=== PATIENT | male | born 1970 | race African-American/Black ===

== ENCOUNTER 2018-02-11 09:43 | Inpatient (IN) | payer BC ==
[2018-02-11 10:18] LABS: Arterial Blood Carboxyhemoglob 0.7 % (0-1.5); Blood Gas Oxyhemoglobin 90.9 % (94-97); Blood O2 Saturation 92.4 % (92-98.5)
[2018-02-11 10:22] LABS: Absolute Lymphocytes (CBC) 0.7 K/uL (0.7-4.9); Absolute Monocytes 0.3 K/uL (0.1-1.3); Absolute Neutrophil 4.4 K/uL (1.8-8.0); Basophils % 0.4 % (0-1.3); Hematocrit 50.5 % (39.6-49.0); Lymphocytes % 13.1 % (15.3-44.8); Monocytes % 5.8 % (3.3-12.3); RBC Red Blood Cell Count 6.16 M/uL (4.33-5.43)
[2018-02-11] MEDS ORDERED: NA CHLORIDE 0.9% 3,000 ML ONE (10:30)
[2018-02-11 10:31] LABS: Protime INR 1.25
--- NOTE | 2018-02-11 10:58 | RAD REPORT ---
EXAM DESCRIPTION: RAD - Chest Single View - 02/11/2018 10:42 am CLINICAL HISTORY: DYSPNEA Chest pain. COMPARISON: No comparisons FINDINGS: Portable technique limits examination quality. Mild to moderate bilateral pulmonary opacities are noted likely representing pulmonary edema or pneum onia. The heart is normal in size. No displaced fractures. IMPRESSION: Bilateral pulmonary opacities are present, likely representing pulmonary edema or pneumo joleen.
[2018-02-11 10:59] LABS: Albumin 3.3 g/dL (3.4-5.0); Bilirubin Direct 0.1 mg/dL (0-0.2); Bilirubin Total 0.4 mg/dL (0.2-1.0); Potassium 3.7 mmol/L (3.5-5.1); Protein, Total 8.3 g/dL (6.4-8.2); Troponin (Emerg Dept Use Only) 0.03 ng/mL (0.0-0.045)
[2018-02-11] MEDS ORDERED: Levofloxacin 750mg IV 750 MG/150 ML BAG IV ONE (11:05)
[2018-02-11] MEDS ORDERED: ACETAMINOPHEN 500 MG TAB ONE (11:05)
--- NOTE | 2018-02-11 11:36 | ER ---
Nurse's Notes [facility] Name: Addison Trujillo Age: 47 yrs Sex: Male : 1970 Arrival Date: 02/11/2018 Time: 09:46 Bed 8 Private MD: Diagnosis: Pneumonia due to other specified bacteria;Rhabdomyolysis;Dehydration;Acute respiratory failure with hypoxia Presentation: 02/11 09:54 Presenting complaint: Patient states: Cough, cold, congestion, flu like symptoms for the past 3-4 days. diarrhea and epigastric pain, congestion. Transition of care: patient was not received from another setting of care. Onset of symptoms was February 07, 2018. Risk Assessment: Do you want to hurt yourself or someone else? Patient reports no desire to harm self or others. Initial Sepsis Screen: Does the patient meet any 2 criteria? RR > 20 per min. HR > 90 bpm. Yes Does the patient have a suspected source of infection? Yes: Productive cough/pneumonia If YES to both, name of provider notified: Espinoza Toussaint MD Care prior to arrival: None. 09:54 Method Of Arrival: Wheelchair 09:54 Acuity: FREDERIC 2 Triage Assessment: 09:56 General: Appears distressed, uncomfortable, Behavior is anxious, restless. Pain: Complains of pain in epigastric area, right upper quadrant and left upper quadrant Pain currently is 8 out of 10 on a pain scale. Neuro: No deficits noted. Cardiovascular: Heart tones S1 S2. Cardiovascular: Heart tones. Respiratory: Airway is patent Trachea midline Respiratory effort is labored, gasping, Respiratory pattern is tachypnea Breath sounds are coarse. Historical: - Allergies: 09:56 PENICILLINS; - Home Meds: 09:56 pro air [Active]; ch - PMHx: 09:56 None; ch - PSHx: 09:56 None; - Immunization history:: Adult Immunizations up to date, Flu vaccine is not up to date. - Social history:: Smoking status: Patient uses tobacco products, Patient uses alcohol. - Ebola Screening: : Patient negative for fever greater than or equal to 101.5 degrees Fahrenheit, and additional compatible Ebola Virus Disease symptoms Patient denies exposure to infectious person Patient denies travel to an Ebola-affected area in the 21 days before illness onset No symptoms or risks identified at this time. Screenin:16 Abuse screen: Denies threats or abuse. Denies injuries from another. Nutritional ch screening: No deficits noted. Tuberculosis screening: No symptoms or risk factors identified. Fall Risk None identified. Assessment: 10:16 General: Appears in no apparent distress. comfortable, Behavior is calm, cooperative, ch appropriate for age. Pain: Denies pain. Neuro: Level of Consciousness is awake, alert, obeys commands, Oriented to person, place, time, situation. Cardiovascular:. Respiratory: Airway is patent Respiratory effort is labored, gasping, with nasal flaring, with retractions, Breath sounds are coarse bilaterally. GI: Abdomen is non-distended, obese. : No signs and/or symptoms were reported regarding the genitourinary system. Derm: Skin is normal. 11:48 Reassessment: Patient appears in no apparent distress at this time. Patient and/or ch family updated on plan of care and expected duration. Pain level reassessed. pt placed on bi pap, states he can breath better on it. pt states he feels sightly better, but not much. pt tries to urinate for the second time, unsuccessfully. 12:15 Reassessment: Patient appears in no apparent distress at this time. Patient and/or ch family updated on plan of care and expected duration. Pain level reassessed. Patient states feeling better. Patient states symptoms have improved. Vital Signs: 09:58 BP 130 / 92; Pulse 135; Resp 35; Pulse Ox 90% on R/A; Weight 108.86 kg; Height 5 ft. 10 ch in. (177.80 cm); Pain 8/10; 10:16 BP 134 / 91; Pulse 129; Resp 36; Temp 99.8; Pulse Ox 96% on 4 lpm NC; Pain 8/10; ch 10:39 Temp 103.3(O); ch 11:30 BP 145 / 108; Pulse 135; Resp 38; Temp 101.5(O); Pulse Ox 94% on 4 lpm NC; Pain 6/10; ch 11:51 BP 140 / 88; Pulse 119; Resp 31; Pulse Ox 98% on BiPAP; Pain 4/10; ch 12:34 BP 136 / 90; Pulse 118; Resp 30; Temp 101.0; Pulse Ox 99% on BiPAP; Pain 0/10; ch 09:58 Body Mass Index 34.44 (108.86 kg, 177.80 cm) ED Course: 09:46 Patient arrived in ED. mr 09:53 Carie Morales, NIRAJ is Primary Nurse. ch 09:54 Darien Herron PA is PHCP. jr8 09:54 Espinoza Toussaint MD is Attending Physician. jr8 09:55 Triage completed. ch 09:58 Arm band placed on left wrist. Patient placed in an exam room, on a stretcher, on ch oxygen, on monitoring and evaluation advisor, on pulse oximetry. 10:12 EKG done, by radiologic technician. reviewed by Darien CHANDLER. tc 10:16 Appears restless. ch 10:16 Patient has correct armband on for positive identification. Placed in gown. Bed in low ch position. Call light in reach. Side rails up X2. Adult w/ patient. classroom monitor on. Pulse ox on. NIBP on. 10:16 No provider procedures requiring assistance completed. Inserted saline lock: 22 gauge ch in right antecubital area, using aseptic technique. Blood collected. Initiated by Cayden. 10:42 X-ray completed. Portable x-ray completed in exam room. Patient tolerated procedure ka well. 10:42 Chest Single View XRAY In Process Unspecified. EDMS 11:34 Colleen Riddle MD is Hospitalizing Provider. jr8 12:15 Patient admitted, IV remains in place. ch 12:34 No apparent distress. Resting quietly. ch 12:34 Warm blanket given. ch 12:34 Inserted saline lock: 18 gauge in left antecubital area, using aseptic technique. ch 12:52 Echocardiogram with Doppler done by instructional technology coordinator. tc Administered Medications: 10:35 Drug: NS 0.9% (30 ml/kg) 3000 ml {Note: Fluids given 1 L at a time, reassess after each ch Liter. i.} Route: IV; Rate: calculated rate; Infused Over: 2 hrs; Site: right antecubital; 12:34 Follow up: IV Status: Completed infusion; IV Intake: 3000ml 11:00 Drug: Tylenol 1000 mg Route: PO; 11:48 Follow up: Response: No adverse reaction; Temperature is decreased ch 11:19 Drug: LevaQUIN 750 mg Volume: 150 ml; Route: IVPB; Infused Over: 90 mins; Site: left antecubital; 12:33 Follow up: IV Status: Infusion continued upon admission 12:32 Drug: Xopenex 1.25 mg Route: Inhalation; Intake: 12:34 IV: 3000ml; Total: 3000ml. Outcome: 11:34 Decision to Hospitalize by Provider. jr8 12:37 Admitted to ICU accompanied by nurse, accompanied by michael, via stretcher, room ICU 7, Report called to Stephanie 13:02 Patient left the ED. jb1 13:30 Condition: stable 13:43 Patient left the ED. Signatures: Dispatcher [employer] EDMS PetersCayden jb1 Carie Morales, RN RN Yosef, Demetrice mr Gopal, Darien, PA PA jr8 Karmen Lafleur, greeting card editor EKG Kerline Drake Corrections: (The following items were deleted from the chart) 10:42 09:54 Initial Sepsis Screen: Does the patient meet any 2 criteria? No. Patient's initial sepsis screen is negative. Does the patient have a suspected source of infection? No. Patient's initial sepsis screen is negative.
--- NOTE | 2018-02-11 11:36 | EDPHYS ---
Physician Documentation [facility] Name: Addison Trujillo Age: 47 yrs Sex: Male : 1970 Arrival Date: 02/11/2018 Time: 09:46 Bed 8 Private MD: ED Physician Espinoza Toussaint HPI: 02/11 10:57 This 47 yrs old Black Male presents to ER via Wheelchair with complaints of Shortness jr8 of breath. 10:57 The patient has shortness of breath at rest. Onset: The symptoms/episode began/occurred jr8 gradually, 1 week(s) ago, and became worse and became persistent. Duration: The symptoms are continuous. The patient's shortness of breath is aggravated by talking, walking. Associated signs and symptoms: Pertinent positives: productive cough, fever. Severity of symptoms: At their worst the symptoms were moderate in the emergency department the symptoms are unchanged. The patient has not experienced similar symptoms in the past. The patient has been recently seen by a physician:. Had been having cough, sinus congestion, n/v/d for past week. Now developing shortness of breath. Patient in mild distress upon arrival . Historical: - Allergies: 09:56 PENICILLINS; ch - Home Meds: 09:56 pro air [Active]; ch - PMHx: 09:56 None; ch - PSHx: 09:56 None; ch - Immunization history:: Adult Immunizations up to date, Flu vaccine is not up to date. - Social history:: Smoking status: Patient uses tobacco products, Patient uses alcohol. - Ebola Screening: : Patient negative for fever greater than or equal to 101.5 degrees Fahrenheit, and additional compatible Ebola Virus Disease symptoms Patient denies exposure to infectious person Patient denies travel to an Ebola-affected area in the 21 days before illness onset No symptoms or risks identified at this time. ROS: 10:57 Eyes: Negative for injury, pain, redness, and discharge, Neck: Negative for injury, jr8 pain, and swelling, Cardiovascular: Negative for chest pain, palpitations, and edema, Back: Negative for injury and pain, MS/Extremity: Negative for injury and deformity, Skin: Negative for injury, rash, and discoloration, Neuro: Negative for headache, weakness, numbness, tingling, and seizure. 10:57 Constitutional: Positive for body aches, chills, fever. 10:57 ENT: Positive for rhinorrhea, sinus congestion. 10:57 Respiratory: Positive for cough, dyspnea on exertion, shortness of breath. 10:57 Abdomen/GI: Positive for nausea, vomiting, and diarrhea, Negative for abdominal pain. Exam: 10:57 Head/Face: Normocephalic, atraumatic. Eyes: Pupils equal round and reactive to light, jr8 extra-ocular motions intact. Lids and lashes normal. Conjunctiva and sclera are non-icteric and not injected. Cornea within normal limits. Periorbital areas with no swelling, redness, or edema. ENT: Nares patent. No nasal discharge, no septal abnormalities noted. Tympanic membranes are normal and external auditory canals are clear. Oropharynx with no redness, swelling, or masses, exudates, or evidence of obstruction, uvula midline. Mucous membranes moist. Neck: Trachea midline, no thyromegaly or masses palpated, and no cervical lymphadenopathy. Supple, full range of motion without nuchal rigidity, or vertebral point tenderness. No Meningismus. Abdomen/GI: Soft, non-tender, with normal bowel sounds. No distension or tympany. No guarding or rebound. No evidence of tenderness throughout. Back: No spinal tenderness. No costovertebral tenderness. Full range of motion. Skin: Warm, dry with normal turgor. Normal color with no rashes, no lesions, and no evidence of cellulitis. MS/ Extremity: Pulses equal, no cyanosis. Neurovascular intact. Full, normal range of motion. Neuro: Awake and alert, GCS 15, oriented to person, place, time, and situation. Cranial nerves II-XII grossly intact. Motor strength 5/5 in all extremities. Sensory grossly intact. Cerebellar exam normal. Normal gait. 10:57 Constitutional: The patient appears alert, awake, in obvious distress, obviously ill. 10:57 Cardiovascular: Rate: tachycardic, Rhythm: regular, Pulses: Pulses are 2+ in right radial artery and left radial artery. Heart sounds: normal, Edema: is not appreciated. 10:57 Respiratory: mild respiratory distress is noted, Respirations: tachypnea, that is mild, Breath sounds: rales, that are mild, are located in both bases. Vital Signs: 09:58 BP 130 / 92; Pulse 135; Resp 35; Pulse Ox 90% on R/A; Weight 108.86 kg; Height 5 ft. 10 ch in. (177.80 cm); Pain 8/10; 10:16 BP 134 / 91; Pulse 129; Resp 36; Temp 99.8; Pulse Ox 96% on 4 lpm NC; Pain 8/10; ch 10:39 Temp 103.3(O); ch 11:30 BP 145 / 108; Pulse 135; Resp 38; Temp 101.5(O); Pulse Ox 94% on 4 lpm NC; Pain 6/10; ch 11:51 BP 140 / 88; Pulse 119; Resp 31; Pulse Ox 98% on BiPAP; Pain 4/10; ch 12:34 BP 136 / 90; Pulse 118; Resp 30; Temp 101.0; Pulse Ox 99% on BiPAP; Pain 0/10; ch 09:58 Body Mass Index 34.44 (108.86 kg, 177.80 cm) ch MDM: 09:54 Patient medically screened. jr8 11:33 Data reviewed: vital signs, nurses notes, lab test result(s), EKG, radiologic studies, jr8 plain films. Data interpreted: Pulse oximetry: on 3L(s) per nasal canula, is 91 %. Interpretation: hypoxia. Counseling: I had a detailed discussion with the patient and/or guardian regarding: the historical points, exam findings, and any diagnostic results supporting the discharge/admit diagnosis, lab results, radiology results, the need for further work-up and treatment in the hospital. Physician consultation: Colleen Riddle MD was called at 11:34, was contacted at 11:34, regarding admission, to the ICU, consult, patient's condition, and will see patient. 02/11 10:00 Order name: ABG; Complete Time: 10:39 02/11 10:00 Order name: Basic Metabolic Panel; Complete Time: 11:16 02/11 10:00 Order name: Blood Culture Adult (2) 02/11 10:00 Order name: CBC with Diff; Complete Time: 10:39 02/11 10:00 Order name: CPK; Complete Time: 11:16 02/11 10:00 Order name: Lactate; Complete Time: 10:56 02/11 10:00 Order name: LFT's; Complete Time: 11:16 02/11 10:00 Order name: Procalcitonin; Complete Time: 11:00 8 02/11 10:00 Order name: Protime (+inr); Complete Time: 10:56 8 02/11 10:00 Order name: Troponin (emerg Dept Use Only); Complete Time: 11:16 8 02/11 10:00 Order name: Chest Single View XRAY; Complete Time: 11:00 8 02/11 10:03 Order name: Flu; Complete Time: 10:39 8 02/11 13:21 Order name: Urine Dipstick--Ancillary (enter results) ag 02/11 13:41 Order name: Urine Dipstick-Ancillary; Complete Time: 17:36 EDMS 02/11 10:00 Order name: Cardiac monitoring; Complete Time: 10:15 8 02/11 10:00 Order name: EKG - Nurse/Tech; Complete Time: 10:15 8 02/11 10:00 Order name: IV Saline Lock - Large Bore; Complete Time: 12:34 8 02/11 10:00 Order name: Labs collected and sent; Complete Time: 10:15 8 02/11 10:00 Order name: O2 Per Protocol; Complete Time: 10:15 8 02/11 10:00 Order name: O2 Sat Monitoring; Complete Time: 10:15 8 02/11 10:53 Order name: EKG Electrocardiogram EDCT 02/11 11:43 Order name: CONS Physician Consult EDCT 02/11 11:48 Order name: Diet Ada 2000 Jesse; Complete Time: 11:49 ch 02/11 12:12 Order name: CT; Complete Time: 12:13 EDMS Administered Medications: 10:35 Drug: NS 0.9% (30 ml/kg) 3000 ml {Note: Fluids given 1 L at a time, reassess after each ch Liter. i.} Route: IV; Rate: calculated rate; Infused Over: 2 hrs; Site: right antecubital; 12:34 Follow up: IV Status: Completed infusion; IV Intake: 3000ml ch 11:00 Drug: Tylenol 1000 mg Route: PO; ch 11:48 Follow up: Response: No adverse reaction; Temperature is decreased ch 11:19 Drug: LevaQUIN 750 mg Volume: 150 ml; Route: IVPB; Infused Over: 90 mins; Site: left antecubital; 12:33 Follow up: IV Status: Infusion continued upon admission 12:32 Drug: Xopenex 1.25 mg Route: Inhalation; Disposition: 11:35 Critical Care:. jr8 Disposition: 02/11/18 11:34 Hospitalization ordered by Colleen Riddle for Inpatient Admission. Preliminary diagnosis are Pneumonia due to other specified bacteria, Rhabdomyolysis, Dehydration, Acute respiratory failure with hypoxia. - Bed requested for Intensive Care Unit. - Status is Inpatient Admission. - Condition is Fair. - Problem is new. - Symptoms have improved. UTI on Admission? No Critical care time excluding procedures: 11:35 Critical care time: Bedside Care: 20 minutes, Consultation: 10 minutes. Total time: 30 jr8 minutes Signatures: Dispatcher [employer] EDMS Cayden Peters jb1 Carie Morales, NIRAJ RN Darien Herron PA PA jr8 Aislinn Mcnally Corrections: (The following items were deleted from the chart) 10:36 10:00 Accucheck ordered. jr8 12:16 11:34 Hospitalization Ordered by Colleen Riddle MD for Inpatient Admission. Preliminary ag diagnosis is Pneumonia due to other specified bacteria; Rhabdomyolysis; Dehydration; Acute respiratory failure with hypoxia. Bed requested for Intensive Care Unit. Status is Inpatient Admission. Condition is Fair. Problem is new. Symptoms have improved. UTI on Admission? No. jr8 13:02 12:16 02/11/2018 11:34 Hospitalization Ordered by Colleen Riddle MD for [facility]. Preliminary diagnosis is Pneumonia due to other specified bacteria; Rhabdomyolysis; Dehydration; Acute respiratory failure with hypoxia. Bed requested for Intensive Care Unit. Status is Inpatient Admission. Condition is Fair. Problem is new. Symptoms have improved. UTI on Admission? No. ag 13:43 13:02 02/11/2018 11:34 Hospitalization Ordered by Colleen Riddle MD for Inpatient Admission. Preliminary diagnosis is Pneumonia due to other specified bacteria; Rhabdomyolysis; Dehydration; Acute respiratory failure with hypoxia. Bed requested for Intensive Care Unit. Status is Inpatient Admission. Condition is Fair. Problem is new. Symptoms have improved. UTI on Admission? No. jb1
--- NOTE | 2018-02-11 12:11 | RAD REPORT ---
EXAM DESCRIPTION: CT - Thorax Wo Con CLINICAL HISTORY: Chest pain acute Respiratory Failure COMPARISON: Chest Single View dated 02/11/2018 FINDINGS: Moderate bilateral alveolar and ground-glass lung opacities are present, likely representi ng bilateral pneumonia. No pleural thickening or pleural effusion. No pneumothorax. Mildly prominent mediastinal lymph nodes are seen, largest in the pretracheal space measuring 13 mm, likely reactive. No concerning bony finding. No gross upper abdominal finding. All CT scans are performed using dose optimization technique as appropriate and may include automated exposure control or mA/KV adjustment according to patient size. IMPRESSION: Moderate bilateral alveolar and ground-glass pulmonary opacities are noted likely repres enting pneumonia.
[2018-02-11] MEDS ORDERED: ONDANSETRON 4 MG/2 ML VIAL IV PRN (12:47)
[2018-02-11] MEDS ORDERED: LEVALBUTEROL 1.25 MG/3 ML NEB ONE (12:49)
[2018-02-11] MEDS ORDERED: Levofloxacin500mg IV 500 MG/100 ML BAG IV SCH (13:00)
[2018-02-11 13:41] LABS: Urine Blood 3+ (NEG); Urine Glucose NEGATIVE (NEG); Urine Protein 2+ (NEG); Urine Specific Gravity 1.015 (1.005-1.030)
[2018-02-11] MEDS: IPRATROPIUM BROM 0.5MG/2.5ML NEB SCH ×2 (13:47→20:00)
[2018-02-11] MEDS: LEVALBUTEROL 0.63 MG/3 ML NEB NEB SCH ×2 (13:47→20:00)
[2018-02-11] MEDS: NA CHLORIDE 0.9% 1,000 ML IV SCH (14:04)
[2018-02-11 14:17] LABS: Urine Appearance CLEAR; Urine Bilirubin NEGATIVE (NEG); Urine Blood 3+ (NEG); Urine Color YELLOW; Urine Glucose NEGATIVE (NEG); Urine Protein 2+ (NEG); Urine Urobilinogen 0.2 mg/dL (0.2-1.0)
[2018-02-11 14:19] LABS: Urine Microscopic Reflex ORDER UMIC
[2018-02-11 14:28] LABS: Barbiturates NEGATIVE (NEGATIVE); Benzodiazepines NEGATIVE (NEGATIVE); Cocaine NEGATIVE (NEGATIVE); METHAMPHETAM NEGATIVE (NEGATIVE); Methadone NEGATIVE (NEGATIVE); Opiates NEGATIVE (NEGATIVE); Phencyclidine NEGATIVE (NEGATIVE); THC Cannibis NEGATIVE (NEGATIVE)
[2018-02-11 14:34] LABS: Urine Bacteria <20 /HPF (NONE SEEN); Urine Culture Reflex Order NOT NEEDED; Urine RBC <5 /HPF (NONE SEEN)
[2018-02-11 14:35] LABS: Urine Amorphous Sediment 2+ /HPF (NONE SEEN)
--- NOTE | 2018-02-11 15:10 | P.HP ---
Certification for Inpatient Patient admitted to: Inpatient With expected LOS: >2 Midnights Patient will require the following post-hospital care: None Practitioner: I am a practitioner with admitting privileges, knowledge of patient current condition, hospital course, and medical plan of care. Services: Services provided to patient in accordance with Admission requirements found in Title 42 Section 412.3 of the Code of Federal Regulations Patient History Date of Service: 02/11/18 Primary Care Provider: Bridger FERNÁNDEZ Reason for admission: Cough and congestion History of Present Illness: This is a 47-year-old male with significant past medical history of hypertension , asthma and borderline diabetes who presented to the ED complaining of having some fever cough and congestion. Patient stated that he woke up Wednesday morning having cough and congestion along with body ache and thus decided to go to his primary care doctor. Primary care doctor prescribed patient some steroids inhalers along with antibiotics. Patient however did not get better and started having some abdominal pain along with diarrhea and thus decided to come to the ER today. Patient stated that his fever has been going on for more than 3 days now and his GI symptoms are also progressively getting worse. Patient also has malaise along with fever. Denies having any chest pain nausea vomiting at this time. Denies any sick contact at home. Positive for tobacco smoking more than 2 packs a day for over 10 years. 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 Negative for alcohol and drugs at this time Allergies Penicillins Adverse Reaction (Severe, Verified 02/11/18 14:20) unknown childhood reaction Sulfa (Sulfonamide Antibiotics) Adverse Reaction (Severe, Verified 02/11/18 14: 20) unkown childhood reaction Home Medications: Albuterol Sulfate [Proair Hfa] 3 puff IH TID 02/11/18 Azithromycin 250 mg PO DAILY 02/11/18 - Past Medical/Surgical History Has patient received pneumonia vaccine in the past: No Diabetic: No -: asthma -: circumsised -: spider bite butt, and sx - Family History Mother -: Hypertension, Diabetes Father -: Hypertension, Lung disease, Diabetes, Kidney disease Notes: on dialysis Sister -: Hypertension, Diabetes - Social History Smoking Status: Heavy Tobacco smoker (>10 cigarettes/day) Counseled patient to stop smoking for: more than 10 minutes Alcohol use: Yes CD- Drugs: No Caffeine use: Yes Place of Residence: Home Review of Systems 10-point ROS is otherwise unremarkable Physical Examination - Vital Signs Temperature: 101.0 F Blood Pressure: 133/83 Pulse: 112 Respirations: 24 Pulse Ox (%): 95 - Physical Exam General: Alert, Oriented x3, Mild distress HEENT: Atraumatic, PERRLA, Mucous membr. moist/pink, EOMI, Sclerae nonicteric Neck: Supple, 2+ carotid pulse no bruit, No LAD, Without JVD or thyroid abnormality Respiratory: Normal air movement, Expiratory wheezes, Inspiratory wheezes, Rhonchi/gurgles Cardiovascular: Regular rate/rhythm, Normal S1 S2 Gastrointestinal: Normal bowel sounds, Tenderness Musculoskeletal: No tenderness Integumentary: No rashes Neurological: Normal gait, Normal speech, Normal strength at 5/5 x4 extr, Normal tone, Normal affect Lymphatics: No axilla or inguinal lymphadenopathy - Studies Laboratory Data (last 24 hrs) 02/11/18 10:10: PT 14.8 H, INR 1.25 02/11/18 10:10: WBC 5.5, Hgb 17.2, Hct 50.5 H, Plt Count 182 02/11/18 10:10: Sodium 125 L, Potassium 3.7, BUN 13, Creatinine 1.27, Glucose 130 H, Total Bilirubin 0.4, AST 121 H, ALT 43, Alkaline Phosphatase 90 Microbiology Data (last 24 hrs): 02/11/18 10:10 Nasopharnyx Influenza Type A Antigen Screen - Final 02/11/18 10:10 Nasopharnyx Influenza Type B Antigen Screen - Final Assessment and Plan - Problems (Diagnosis) (1) Acute respiratory failure Current Visit: Yes Status: Acute Plan: Acute Hypoxic Respiratory Failure most likely secondary to bilateral pneumonia -currently on BiPAP will wean off to nasal cannula as tolerated. -pulmonology has been consulted. Awaiting recommendations at this time. -continuous pulse ox and continue monitor closely Qualifiers: Respiratory failure complication: hypoxia Qualified Code(s): J96.01 - Acute respiratory failure with hypoxia (2) PNA (pneumonia) Current Visit: Yes Status: Acute Plan: Bilateral pneumonia on the CT scan. Possible atypical pneumonia (Legionella, mycoplasma) versus viral pneumonia -WBC within normal limit with left shift, pro calcitonin negative. -patient has been recently on antibiotics which could explain his normalize WBC along with negative pro calcitonin. -patient with GI symptoms and hyponatremia. Possible Legionella pneumonia. -blood culture, sputum culture, urine antigen pending at this time -started on vanc and Zosyn at this time -pulmonology has been consulted. Awaiting recommendations Qualifiers: Pneumonia type: due to unspecified organism Laterality: bilateral Lung location: lower lobe of lung Qualified Code(s): J18.1 - Lobar pneumonia, unspecified organism (3) Rhabdomyolysis Current Visit: Yes Status: Acute Plan: Rhabdomyolysis with elevated CPK -IV fluids at this time -will continue to monitor closely Qualifiers: Rhabdomyolysis type: non-traumatic Qualified Code(s): M62.82 - Rhabdomyolysis (4) Diarrhea Current Visit: Yes Status: Acute Plan: Patient with diarrhea and GI discomfort most likely secondary to pneumonia versus viral gastroenteritis -stool culture pending at this time -on IV antibiotics -will continue to monitor closely Qualifiers: Diarrhea type: presumed infectious Qualified Code(s): R19.7 - Diarrhea, unspecified (5) Asthma Current Visit: Yes Status: Acute Plan: Acute exacerbation of Asthma secondary to bilateral pneumonia -duo nebs and BiPAP at this time Qualifiers: Asthma severity: moderate Asthma persistence: persistent Asthma complication type: with acute exacerbation Qualified Code(s): J45.41 - Moderate persistent asthma with (acute) exacerbation (6) Tobacco abuse Current Visit: Yes Status: Chronic Plan: Smokes about 2 pack a day -smoking cessation provided Discharge Plan: Home Plan to discharge in: Greater than 2 days - Advance Directives Does patient have a Living Will: No Does patient have a Durable POA for Healthcare: No - Code Status/Comfort Care Code Status Assessed: Yes Critical Care: No
[2018-02-11] MEDS: PIPER/TAZO/NS 3.375gm 3.375 GM/100 ML BAG IVPB SCH (17:44)
[2018-02-11] MEDS: ENOXAPARIN 40 MG/0.4 ML SQ SCH (17:45)
[2018-02-11] MEDS ORDERED: INFLUENZA VACCINE (for 3y+) 0.5 ML DOSE IMVAC ONE (18:00)
[2018-02-11] MEDS ORDERED: PNEUMOCOCCAL VACCINE 0.5 ML IMVAC ONE (18:00)
[2018-02-11] MEDS: ACETAMINOPHEN 500 MG TAB PO PRN (20:28)
[2018-02-11] MEDS: MORPHINE 4 MG/ML SYR IV PRN (20:55)
[2018-02-12] MEDS: ACETAMINOPHEN 500 MG TAB PO PRN ×2 (00:19→11:43)
[2018-02-12] MEDS: PIPER/TAZO/NS 3.375gm 3.375 GM/100 ML BAG IVPB SCH ×2 (00:19→09:36)
[2018-02-12] MEDS: NA CHLORIDE 0.9% 1,000 ML IV SCH (00:19)
[2018-02-12] MEDS: IPRATROPIUM BROM 0.5MG/2.5ML NEB SCH ×4 (02:00→20:04)
[2018-02-12] MEDS: LEVALBUTEROL 0.63 MG/3 ML NEB NEB SCH ×4 (02:00→20:04)
[2018-02-12] MEDS ORDERED: D5W 1,000 ML with NA BICARB 8.4% 100 MEQ IV SCH ×4 (03:00→05:00)
[2018-02-12] MEDS ORDERED: D5W 1,000 ML IV ONE (03:37)
[2018-02-12] MEDS ORDERED: FUROSEMIDE 40 MG/4 ML VIAL IV ONE (04:55)
[2018-02-12] MEDS ORDERED: ALBUMIN HUMAN 25% 100 ML IV ONE (04:55)
[2018-02-12 06:01] LABS: ALT/SGPT 45 U/L (12-78); Albumin 2.6 g/dL (3.4-5.0); Alkaline Phosphatase 75 U/L (45-117); BUN Blood Urea Nitrogen 10 mg/dL (7-18); Bicarbonate 25 mmol/L (21-32); Bilirubin Total 0.3 mg/dL (0.2-1.0); Glucose Level 140 mg/dL (74-106); Phosphorus 2.3 mg/dL (2.5-4.9); Protein, Total 6.7 g/dL (6.4-8.2); Sodium Level 134 mmol/L (136-145)
[2018-02-12 06:07] LABS: Absolute Lymphocytes (CBC) 0.5 K/uL (0.7-4.9); Absolute Monocytes 0.2 K/uL (0.1-1.3); Absolute Neutrophil 5.1 K/uL (1.8-8.0); Basophils % 0.2 % (0-1.3); Hematocrit 45.8 % (39.6-49.0); Lymphocytes % 9.2 % (15.3-44.8); MPV 10.4 fL (7.6-11.3); Monocytes % 2.7 % (3.3-12.3); RBC Red Blood Cell Count 5.54 M/uL (4.33-5.43)
[2018-02-12 06:27] LABS: AST/SGOT 165 U/L (15-37); Magnesium 2.1 mg/dL (1.8-2.4); Potassium 4.1 mmol/L (3.5-5.1)
[2018-02-12 06:29] LABS: Creatine Phosphokinase 8626 U/L (39-308)
[2018-02-12] MEDS ORDERED: SODIUM PHOSPHATE 15 MM in NA CHLORIDE 0.9% 250 ML IV ONE (08:00)
[2018-02-12 08:07] LABS: Blood Morphology Comment NOT SEEN (NOT SEEN); Platelet Estimate ADEQ
[2018-02-12] MEDS: MORPHINE 4 MG/ML SYR IV PRN (08:23)
[2018-02-12] MEDS ORDERED: SODIUM CHLORIDE 0.9% 10ML INJ IV PRN (08:25)
[2018-02-12] MEDS ORDERED: Levofloxacin500mg IV 500 MG/100 ML BAG IV SCH (09:00)
[2018-02-12] MEDS: PANTOPRAZOLE 40 MG INJ IVP SCH ×2 (09:45→20:26)
--- NOTE | 2018-02-12 09:58 | P.CNS ---
Date of Consult: 02/12/18 Primary Care Provider: Bridger FERNÁNDEZ Chief Complaint: Respiratory failure pneumonia History of Present Illness: Patient is a 47-year-old man admitted with cough congestion bodyaches he was prescribed steroids with antibiotics did not improve also having some abdominal pain diarrhea came to the emergency room was found to have extensive bilateral infiltrate having some fever and malaise chest discomfort heavy smoker currently on BiPAP Allergies Penicillins Adverse Reaction (Severe, Verified 02/11/18 14:20) unknown childhood reaction Sulfa (Sulfonamide Antibiotics) Adverse Reaction (Severe, Verified 02/11/18 14: 20) unkown childhood reaction Home Medications: Albuterol Sulfate [Proair Hfa] 3 puff IH TID 02/11/18 Azithromycin 250 mg PO DAILY 02/11/18 - Past Medical/Surgical History Diabetic: No -: asthma -: circumsised -: spider bite butt, and sx - Family History Mother Medical History: Hypertension, Diabetes Father Medical History: Hypertension, Lung disease, Diabetes, Kidney disease Notes: on dialysis Sister Medical History: Hypertension, Diabetes - Social History Alcohol use: Yes CD- Drugs: No Caffeine use: Yes Place of Residence: Home Review of Systems is unable to be obtained Physical Examination Temp Pulse Resp BP Pulse Ox 98.3 F 124 H 41 H 131/74 90 L 02/12/18 04:00 02/12/18 09:00 02/12/18 09:00 02/12/18 09:00 02/12/18 09:00 General: Alert, Mild distress Respiratory: Crackles/rales (Crackles bilaterally) Cardiovascular: No edema, Normal pulses, Normal S1 S2 Gastrointestinal: Normal bowel sounds, Soft and benign Laboratory Data (last 24 hrs) 02/11/18 10:10: PT 14.8 H, INR 1.25 02/11/18 10:10: WBC 5.5, Hgb 17.2, Hct 50.5 H, Plt Count 182 02/11/18 10:10: Sodium 125 L, Potassium 3.7, BUN 13, Creatinine 1.27, Glucose 130 H, Total Bilirubin 0.4, AST 121 H, ALT 43, Alkaline Phosphatase 90 - Problems (1) PNA (pneumonia) Current Visit: Yes Status: Acute Plan: Patient is 47 years of age admitted with pneumonia he has bilateral infiltrates left greater than right labs reviewed white count is normal patient does not have any risk factors for Mr SA or Pseudomonas recommend changing to levofloxacin Dc vancomycin once the culture results are available Dc Zosyn increase CPAP patient is a heavy smoker patient or dose of Lasix Qualifiers: Pneumonia type: due to unspecified organism Laterality: bilateral Lung location: lower lobe of lung Qualified Code(s): J18.1 - Lobar pneumonia, unspecified organism
[2018-02-12] MEDS ORDERED: Levofloxacin 750mg IV 750 MG/150 ML BAG IV SCH (10:00)
--- NOTE | 2018-02-12 10:20 | RAD REPORT ---
EXAM DESCRIPTION: Abby Single View02/12/2018 4:16 am CLINICAL HISTORY: Shortness of breath COMPARISON: February 11 FINDINGS: Mild worsening in diffuse bilateral alveolar opacities Heart is normal size IMPRESSION: Mild worsening in diffuse bilateral alveolar opacities which may indicate pulmonary roney ma or pneumonia
[2018-02-12] MEDS: VANCOMYCIN 2 GM in NA CHLORIDE 0.9% 500 ML IVPB SCH ×2 (11:48→22:29)
--- NOTE | 2018-02-12 13:53 | EKG ---
Test Date: 2018-02-12 Test Time: 08:24:38 Lifter: MAURICIO MEASUREMENT RESULTS: Intervals: Rate: 121 WY: 138 QRSD: 72 QT: 294 QTc: 417 [place]: P: 50 WY: 138 QRS: 53 T: 26 INTERPRETIVE STATEMENTS: Sinus tachycardia Otherwise normal ECG Compared to ECG 02/11/2018 10:05:40 No significant changes Electronically Signed On 02-12-18 13:53:30 PIER RUNNER by Remigio Daniels
[2018-02-12] MEDS ORDERED: LORazepam 2 MG/ML VIAL IV ONE (13:58)
--- NOTE | 2018-02-12 13:59 | EKG ---
Test Date: 2018-02-11 Test Time: 10:05:40 Home Appliance Technician: MATHEW MEASUREMENT RESULTS: Intervals: Rate: 130 NE: 134 QRSD: 70 QT: 298 QTc: 438 [place]: P: 58 NE: 134 QRS: 64 T: 55 INTERPRETIVE STATEMENTS: Sinus tachycardia Otherwise normal ECG Compared to ECG 09/19/2015 14:21:31 Sinus rhythm no longer present T-wave abnormality no longer present Electronically Signed On 02-12-18 13:54:38 [employer] by Remigio Daniels
[2018-02-12] MEDS ORDERED: VANCOMYCIN 2 GM in NA CHLORIDE 0.9% 500 ML IVPB SCH (14:00)
--- NOTE | 2018-02-12 14:52 | P.PN ---
Subjective Date of Service: 02/12/18 Primary Care Provider: Bridger FERNÁNDEZ Chief Complaint: Respiratory failure pneumonia Patient seen and examined at bedside with RN. Chart reviewed. Case discussed with pulmonology. Patient currently is having acute respiratory distress. Is on BiPAP. Does appear to be acutely ill. States that he has been having trouble breathing and abdominal pain. Does complain of having some scrotal pain as well. Review of Systems 10-point ROS is otherwise unremarkable Physical Examination - Vital Signs Temperature: 98.3 F Blood Pressure: 141/75 Pulse: 114 Respirations: 38 Pulse Ox (%): 94 - Physical Exam General: Alert, Acute distress, Other (Ill-appearing) Neck: Supple, JVD not distended Respiratory: Normal air movement, Expiratory wheezes, Inspiratory wheezes, Rhonchi/gurgles Cardiovascular: Regular rate/rhythm, Normal S1 S2 Gastrointestinal: Normal bowel sounds, Tenderness Musculoskeletal: Swelling Integumentary: No rashes Neurological: Normal speech, Normal tone, Normal affect Lymphatics: No axilla or inguinal lymphadenopathy - Studies Microbiology Data (last 24 hrs): 02/11/18 10:10 Nasopharnyx Influenza Type A Antigen Screen - Final 02/11/18 10:10 Nasopharnyx Influenza Type B Antigen Screen - Final Medications List Reviewed: Yes Assessment And Plan - Current Problems (Diagnosis) (1) Acute respiratory failure Current Visit: Yes Status: Acute Plan: Acute Hypoxic Respiratory Failure most likely secondary to bilateral pneumonia -currently on BiPAP will wean off to nasal cannula as tolerated. -pulmonology has been consulted. Reccs Appreciated at this time. -continuous pulse ox and continue monitor closely Qualifiers: Respiratory failure complication: hypoxia Qualified Code(s): J96.01 - Acute respiratory failure with hypoxia (2) PNA (pneumonia) Current Visit: Yes Status: Acute Plan: Bilateral pneumonia on the CT scan. Possible atypical (Legionella, mycoplasma) vs MRSA pneumonia. -patient with severe Community Acquired PNA criteria. Meets 1 major and 3 minor Criteria requiring ICU admission -WBC within normal limit however, with left shift, pro calcitonin elevated today. -Xray with Worsening of PNA BL -Failed outpt therapy with Zithromax -Hypotension and elevated RR with elevated Temperature -patient with GI symptoms, elevated CPK and hyponatremia. Possible Legionella pneumonia. -Antigen pending - On levaquin for now. First dose Received in the ER yesterday -patient with MRSA infection in the past, 2pack h/o Smoking, Underlying Asthma and Chemical Inhalation exposure. Risk for MRSA and Hinfluenza -Sputum Culture pending -On IV vanc for now -Questionable Alcohol abuse and Drug abuse -pulmonology has been consulted. Reccs Appreciated -If no Improvement may need to be intubated -If No improvement noted in next 24 to 48 hrs patient may benefit from bronchoscope Qualifiers: Pneumonia type: due to unspecified organism Laterality: bilateral Lung location: lower lobe of lung Qualified Code(s): J18.1 - Lobar pneumonia, unspecified organism (3) Rhabdomyolysis Current Visit: Yes Status: Acute Plan: Rhabdomyolysis with elevated CPK. Most Likely 2.2 to PNA -IV fluids at this time -will continue to monitor closely Qualifiers: Rhabdomyolysis type: non-traumatic Qualified Code(s): M62.82 - Rhabdomyolysis (4) Diarrhea Current Visit: Yes Status: Acute Plan: Patient with diarrhea and GI discomfort most likely secondary to pneumonia versus viral gastroenteritis -stool culture negative thus far -on IV antibiotics -will continue to monitor closely Qualifiers: Diarrhea type: presumed infectious Qualified Code(s): R19.7 - Diarrhea, unspecified (5) Asthma Current Visit: Yes Status: Acute Plan: Acute exacerbation of Asthma secondary to bilateral pneumonia -duo nebs and BiPAP at this time Qualifiers: Asthma severity: moderate Asthma persistence: persistent Asthma complication type: with acute exacerbation Qualified Code(s): J45.41 - Moderate persistent asthma with (acute) exacerbation (6) Tobacco abuse Current Visit: Yes Status: Chronic Plan: Smokes about 2 pack a day -smoking cessation provided Discharge Plan: Other Plan to discharge in: Greater than 2 days - Code Status/Comfort Care Code Status Assessed: Yes Critical Care: Yes
[2018-02-12 14:56] LABS: Arterial Blood Carboxyhemoglob 0.9 % (0-1.5); Blood Gas Oxyhemoglobin 91.5 % (94-97); Blood O2 Saturation 92.8 % (92-98.5)
[2018-02-12] MEDS ORDERED: KETAMINE HCL 500 MG/5 ML VIAL IV STA (15:33)
[2018-02-12] MEDS ORDERED: FENTANYL CITR 100 MCG/2 ML IV PRN (15:40)
[2018-02-12] MEDS ORDERED: RSI MEDICATION KIT IV ONE (15:43)
[2018-02-12] MEDS ORDERED: PROPOFOL 1,000 MG/100 ML VIAL IV ONE (15:48)
[2018-02-12] MEDS ORDERED: SUCCINYLCHOLINE 20 MG/ML (10 ML) IV SCH (16:00)
[2018-02-12] MEDS ORDERED: SUCCINYLCHOLINE 20 MG/ML (10 ML) IV ONE (16:31)
[2018-02-12] MEDS ORDERED: DEXAMETHASONE 4 MG/ML VIAL ONE ×2 (16:43→17:17)
[2018-02-12] MEDS ORDERED: GLYCOPYRROLATE 0.2 MG/ML SYR IV ONE (17:00)
[2018-02-12] MEDS ORDERED: MIDAZOLAM HCL 2 MG/2 ML INJ ONE (17:20)
[2018-02-12 17:48] LABS: Absolute Lymphocytes (CBC) 0.3 K/uL (0.7-4.9); Absolute Monocytes 0.2 K/uL (0.1-1.3); Absolute Neutrophil 7.1 K/uL (1.8-8.0); Basophils % 0.2 % (0-1.3); Hematocrit 44.7 % (39.6-49.0); Lymphocytes % 4.3 % (15.3-44.8); MPV 9.6 fL (7.6-11.3); Monocytes % 2.8 % (3.3-12.3); RBC Red Blood Cell Count 5.41 M/uL (4.33-5.43)
[2018-02-12] MEDS ORDERED: PIPER/TAZO/NS 3.375gm 3.375 GM/100 ML BAG IVPB SCH (18:00)
[2018-02-12] MEDS: PROPOFOL 1,000 MG/100 ML VIAL IV PRN ×3 (18:22→22:48)
[2018-02-12] MEDS: ENOXAPARIN 40 MG/0.4 ML SQ SCH (18:33)
[2018-02-12 18:35] LABS: Albumin 2.9 g/dL (3.4-5.0); Bilirubin Total 0.5 mg/dL (0.2-1.0); Magnesium 1.9 mg/dL (1.8-2.4); Protein, Total 7.1 g/dL (6.4-8.2); Thyroid Stimulating Hormone 0.422 uIU/mL (0.360-3.740)
[2018-02-12 18:57] LABS: Blood Morphology Comment NOT SEEN (NOT SEEN); Platelet Estimate DECR; Smudge Cells FEW
--- NOTE | 2018-02-12 19:03 | RAD REPORT ---
EXAM DESCRIPTION: Abby Single View02/12/2018 6:01 pm CLINICAL HISTORY: Chest pain COMPARISON: February 12, 2018 chest x-ray FINDINGS: An endotracheal tube has its tip 6 centimeters above the marybeth Nasogastric tube has its tip at the junction of the distal stomach and duodenum No significant change has occurred in the diffuse bilateral pulmonary opacities
[2018-02-12] MEDS ORDERED: HYDROCORTISONE SUC 100 MG INJ IV SCH (21:00)
--- NOTE | 2018-02-12 21:08 | RAD REPORT ---
EXAM DESCRIPTION: US - Scrotum Testicles - 02/12/2018 8:50 pm CLINICAL HISTORY: Scrotal pain COMPARISON: None FINDINGS: Right testicle measures 4.2 x 3.2 x 2.2 centimeters. Echotexture is homogeneous. Normal bl ood flow Left testicle measures 4.5 x 2 x 3.2 centimeters. Echotexture is homogeneous. Normal blood flow The epididymides are normal in size and echotexture. Normal blood flow is seen. 5 millimeter left spermatocele Minimal hydroceles probably is physiologic IMPRESSION: 5 millimeter left spermatocele
[2018-02-13] MEDS ORDERED: ETOMIDATE 20 MG/10 ML VIAL IV ONE (00:14)
[2018-02-13] MEDS ORDERED: VECURONIUM 10 MG/VIAL IV ONE (00:14)
[2018-02-13] MEDS ORDERED: WATER FOR INJ,STERILE 10 ML IV ONE (00:14)
[2018-02-13] MEDS ORDERED: SUCCINYLCHOLINE 20 MG/ML (10 ML) IV ONE (00:14)
[2018-02-13] MEDS ORDERED: FUROSEMIDE 40 MG/4 ML VIAL IV SCH (09:00)
--- NOTE | 2018-02-13 23:43 | CON ---
Date of Consultation: 02/12/2018 Reason For Consultation: Acute respiratory failure. Elevated troponin. History Of Present Illness: The patient is a 47-year-old black male. According to him, he had a sma ll hole in his heart when he was young. This was never treated surgically or followed up on. He cam e in with an acute respiratory failure. He does have a history of COPD or asthma for which he takes albuterol and has been taking a Z-Jose at home, but apparently his respiration got much worse and he w as admitted, was placed on CPAP and BiPAP. His last PO2 was 64, pCO2 of 32, pH of 7.45. CT of his c hest and chest x-ray are consistent with pneumonia. An echocardiogram was normal without any evidenc e of CHF or ASD. Past Medical History: Otherwise negative. Allergies: PENICILLIN AND SULFA. Review of Systems: Negative. Social History: Negative. Family History: Negative. Medications: At home include albuterol and Z-Jose. Physical Examination: Vital Signs: He weighed 239 pounds. No acute distress. Vital signs were stable, afebrile sinus rhythm. HEENT: Negative. Neck: Supple with no bruit. Chest: Clear on the right side. On the left side, he has some crackles and expiratory wheezing. Car diac: Reveals regular rhythm and rate. No murmurs, gallops, or rubs. Abdomen: Benign. Extremities: Revealed no clubbing, cyanosis, or edema. Diagnostic Data: As stated earlier EKG nonspecific. CPK was 5291, troponin 0.09. Sodium was 125. Impression And Plan: 1.Pneumonia. 2.Hypoxia, probably causing elevated troponin. 3.Possible rhabdomyolysis. 4.Hyponatremia secondary to dehydration. Mr. Trujillo does not need any more cardiac workup. He needs to be treated with hydration and antibio tics and I will be available for questions if the need arises. ÁNGEL/MODL Voice ID: [id number] Report ID: [id number]
--- NOTE | 2018-02-14 08:03 | ECHO ---
HEIGHT: 5 ft 10 in WEIGHT: 226 lb 11.2 oz DATE OF STUDY: 02/11/[address]: Colleen Riddle MD 2-DIMENSIONAL: YES M.MODE: YES DOPPLER: YES COLOR FLOW: YES TDS: NO PORTABLE: YES DEFINITY: NO BUBBLE STUDY: NO DIAGNOSIS: CONGESTIVE HEART FAILURE CARDIAC HISTORY: CATHERIZATION: NO SURGERY: NO PROSTHETIC VALVE: NO PACEMAKER: NO MEASUREMENTS (cm) DIASTOLIC (NORMALS) SYSTOLIC (NORMALS) IVSd 1.4 (0.6-1.2) LA Diam 3.4 (1.9-4.0) LVEF 75% LVIDd 3.5 (3.5-5.7) LVIDs 2.0 (2.0-3.5) %FS 43% LVPWd 1.6 (0.6-1.2) Ao Diam 3.1 (2.0-3.7) 2 DIMENSIONAL ASSESSMENT: RIGHT ATRIUM: NORMAL LEFT ATRIUM: NORMAL RIGHT VENTRICLE: NORMAL LEFT VENTRICLE: LEFT VENTRICULAR HYPERTROPHY TRICUSPID VALVE: NORMAL MITRAL VALVE: NORMAL PULMONIC VALVE: NORMAL AORTIC VALVE: NORMAL PERICARDIAL EFFUSION: NONE AORTIC ROOT: NORMAL LEFT VENTRICULAR WALL MOTION: NORMAL DOPPLER/COLOR FLOW: NORMAL COMMENTS: LEFT VENTRICULAR HYPERTROPHY. NORMAL LEFT VENTRICULAR EJECTION FRACTION. NO WALL MOTION ABNORMALITY. TECHNOLOGIST: Nelly MAYFIELD
== END 2018-02-13 00:15 | disposition short-term general hospital (02) | DRG 208 ==
LOC: ER 09:43 → ERHOLD 11:41 → 3RD-ICU 12:41
PROVIDERS: ADMIT Family Medicine; ATTEND Family Medicine
PROC: 5A09457 Assistance with Respiratory Ventilation, 24-96 Consecutive Hours, Continuous Positive Airway Pressure (ICD-10-PCS; 2018-02-11)
PROC: 5A1935Z Respiratory Ventilation, Less than 24 Consecutive Hours (ICD-10-PCS; principal; 2018-02-12)
PROC: 0BH17EZ Insertion of Endotracheal Airway into Trachea, Via Natural or Artificial Opening (ICD-10-PCS; 2018-02-12)
DX: J18.1 Lobar pneumonia, unspecified organism (principal); J96.01 Acute respiratory failure with hypoxia; M62.82 Rhabdomyolysis; J45.41 Moderate persistent asthma with (acute) exacerbation; E87.1 Hypo-osmolality and hyponatremia; F17.210 Nicotine dependence, cigarettes, uncomplicated; R19.7 Diarrhea, unspecified; Z88.0 Allergy status to penicillin; Z88.2 Allergy status to sulfonamides; I95.9 Hypotension, unspecified; E86.0 Dehydration; R00.0 Tachycardia, unspecified
CPT/HCPCS: 36415; 71045; 71250; 76870; 80048; 80053; 80076; 80307; 81003; 81015; 82550; 82805; 82962; 83605; 83735; 83874; 83880; 84100; 84145; 84443; 84484; 85025; 85610; 87040; 87045; 87046; 87070; 87086; 87088; 87177; 87205; 87209; 87493; 87804; 93005; 93306; 94002; 94640; 94667; 94668; 99285; C9113; J0330; J1650; J1720; J1940; J2250; J2543; J2704; J3010; J7030; P9047

== ENCOUNTER 2018-03-14 03:03 | Emergency (ER) | payer BC ==
--- NOTE | 2018-03-14 04:38 | ER ---
Nurse's Notes [facility] Name: Addison Trujillo Age: 47 yrs Sex: Male : 1970 Arrival Date: 03/14/2018 Time: 03:04 Bed 20 Private MD: Twyla Arndt C Diagnosis: Pain in right upper arm Presentation: 03/14 03:10 Presenting complaint: Patient states: nontraumatic right hand and arm pain since 2 cc3 weeks related to IV cannula placement from other hospital. 03:10 Method Of Arrival: Ambulatory cc3 03:10 Transition of care: patient was not received from another setting of care. Onset of cc3 symptoms is unknown. Risk Assessment: Do you want to hurt yourself or someone else? Patient reports no desire to harm self or others. Initial Sepsis Screen: Does the patient meet any 2 criteria? No. Patient's initial sepsis screen is negative. Does the patient have a suspected source of infection? No. Patient's initial sepsis screen is negative. Care prior to arrival: None. 03:10 Acuity: FREDERIC 4 cc3 Triage Assessment: 03:10 General: Appears in no apparent distress. comfortable, Behavior is calm, cooperative, cc3 appropriate for age. Pain: Complains of pain in right arm and hand. EENT: No signs and/or symptoms were reported regarding the EENT system. Neuro: Level of Consciousness is awake, alert, obeys commands, Oriented to person, place, time, situation, Appropriate for age. Cardiovascular: Denies chest pain. Respiratory: Airway is patent Respiratory effort is even, unlabored, Respiratory pattern is regular, symmetrical. GI: Abdomen is round non-distended. : No signs and/or symptoms were reported regarding the genitourinary system. Derm: No signs and/or symptoms reported regarding the dermatologic system. Musculoskeletal: Circulation, motion, and sensation intact. Range of motion: intact in all extremities. Historical: - Allergies: 03:10 PENICILLINS; cc3 - Home Meds: 03:10 Pro Air [Active]; cc3 - PMHx: 03:10 Diabetes - NIDDM; cc3 - Immunization history:: Adult Immunizations not up to date. - Social history:: Smoking status: unknown. - Ebola Screening: : No symptoms or risks identified at this time. Screenin:10 Abuse screen: Denies threats or abuse. Denies injuries from another. Nutritional cc3 screening: No deficits noted. Tuberculosis screening: No symptoms or risk factors identified. Fall Risk Ambulatory Aid- None/Bed Rest/Nurse Assist (0 pts). Gait- Normal/Bed Rest/Wheelchair (0 pts) Mental Status- Oriented to own ability (0 pts). Assessment: 03:10 General: see triage assessment. cc3 04:11 Reassessment: Patient appears in no apparent distress at this time. Patient and/or cc3 family updated on plan of care and expected duration. Pain level reassessed. Patient is alert, oriented x 3, equal unlabored respirations, skin warm/dry/pink. 04:50 Reassessment: Patient appears in no apparent distress at this time. Patient and/or cc3 family updated on plan of care and expected duration. Pain level reassessed. Patient is alert, oriented x 3, equal unlabored respirations, skin warm/dry/pink. Dr. Hinton discharged the patient home with prescription given. No IV cannula in situ. Patient left ER vitally stable and ambulatory. Vital Signs: 03:10 BP 138 / 88; Pulse 99; Resp 19 S; Temp 99.1(O); Pulse Ox 98% on R/A; Weight 97.52 kg cc3 (R); Height 5 ft. 10 in. (177.80 cm) (R); 04:11 BP 120 / 89; Pulse 101; Resp 19 S; Pulse Ox 96% on R/A; cc3 03:10 Body Mass Index 30.85 (97.52 kg, 177.80 cm) cc3 ED Course: 03:04 Patient arrived in ED. am2 03:05 Twyla Arndt FNP is Private Physician. am2 03:07 Nay Canales is Primary Nurse. cc3 03:08 Cj Hinton MD is Attending Physician. gs 03:10 Patient has correct armband on for positive identification. Bed in low position. Call cc3 light in reach. Side rails up X 1. Pulse ox on. NIBP on. 03:10 Arm band placed on left wrist. Patient notified of wait time. cc3 03:36 Triage completed. cc3 03:50 No provider procedures requiring assistance completed. Patient did not have IV access cc3 during this emergency room visit. 04:05 Hand Right 3 View XRAY In Process Unspecified. EDMS 04:37 UPPER EXTREMITY VENOUS UNILATE In Process Unspecified. EDMS Administered Medications: 04:40 Drug: TORadol 30 mg Route: IM; Site: right gluteus; cc3 04:50 Follow up: Response: No adverse reaction cc3 Outcome: 04:37 Discharge ordered by . la 04:50 Discharged to home ambulatory. cc3 04:50 Condition: stable 04:50 Discharge instructions given to patient, Instructed on discharge instructions, follow up and referral plans. medication usage, Demonstrated understanding of instructions, follow-up care, medications, Prescriptions given X 2. 04:51 Patient left the ED. cc3 Signatures: Dispatcher [employer] EDMS Bell Avendaño am2 Cj Hinton MD MD gs Cordel, Charlene cc3 Corrections: (The following items were deleted from the chart) 03:36 03:10 Presenting complaint: Patient states: nontraumatic right hand and arm pain since cc3 2 weeks related to IV cannula placement from other hospital cc3
[2018-03-14] MEDS ORDERED: KETOROLAC 30 MG/ML INJ ONE (04:39)
--- NOTE | 2018-03-14 04:39 | EDPHYS ---
Physician Documentation [facility] Name: Addison Trujillo Age: 47 yrs Sex: Male : 1970 Arrival Date: 03/14/2018 Time: 03:04 Bed 20 Private MD: Twyla Arndt C ED Physician Cj Hinton HPI: 03/14 04:34 This 47 yrs old Black Male presents to ER via Ambulatory with complaints of Arm Pain. gs 04:34 The complaints affect the dorsal aspect of right forearm and right hand. Onset: The gs symptoms/episode began/occurred 2 day(s) ago, and became worse and became persistent. Associated signs and symptoms: Pertinent negatives: erythema, fever, swelling, weakness. Severity of symptoms: At their worst the symptoms were moderate, in the emergency department the symptoms are unchanged. The patient has not experienced similar symptoms in the past. says was just in hospital with pna, thinks broke off iv in hand. Historical: - Allergies: 03:10 PENICILLINS; cc3 - Home Meds: 03:10 Pro Air [Active]; cc3 - PMHx: 03:10 Diabetes - NIDDM; cc3 - Immunization history:: Adult Immunizations not up to date. - Social history:: Smoking status: unknown. - Ebola Screening: : No symptoms or risks identified at this time. ROS: 04:34 All other systems are negative. gs Exam: 04:34 Head/Face: Normocephalic, atraumatic. Eyes: Pupils equal round and reactive to light, gs extra-ocular motions intact. Lids and lashes normal. Conjunctiva and sclera are non-icteric and not injected. Cornea within normal limits. Periorbital areas with no swelling, redness, or edema. ENT: Nares patent. No nasal discharge, no septal abnormalities noted. Tympanic membranes are normal and external auditory canals are clear. Oropharynx with no redness, swelling, or masses, exudates, or evidence of obstruction, uvula midline. Mucous membranes moist. Neck: Trachea midline, no thyromegaly or masses palpated, and no cervical lymphadenopathy. Supple, full range of motion without nuchal rigidity, or vertebral point tenderness. No Meningismus. Chest/axilla: Normal chest wall appearance and motion. Nontender with no deformity. No lesions are appreciated. Cardiovascular: Regular rate and rhythm with a normal S1 and S2. No gallops, murmurs, or rubs. Normal PMI, no JVD. No pulse deficits. Respiratory: Lungs have equal breath sounds bilaterally, clear to auscultation and percussion. No rales, rhonchi or wheezes noted. No increased work of breathing, no retractions or nasal flaring. Abdomen/GI: Soft, non-tender, with normal bowel sounds. No distension or tympany. No guarding or rebound. No evidence of tenderness throughout. Back: No spinal tenderness. No costovertebral tenderness. Full range of motion. Skin: Warm, dry with normal turgor. Normal color with no rashes, no lesions, and no evidence of cellulitis. Neuro: Awake and alert, GCS 15, oriented to person, place, time, and situation. Cranial nerves II-XII grossly intact. Motor strength 5/5 in all extremities. Sensory grossly intact. Cerebellar exam normal. Normal gait. 04:34 Constitutional: The patient appears alert, awake. 04:34 Musculoskeletal/extremity: Extremities: noted in the right bicep, dorsal aspect of right forearm and right hand: pain, tenderness, There is no evidence of swelling, Circulation is intact in all extremities. Sensation intact. Vital Signs: 03:10 BP 138 / 88; Pulse 99; Resp 19 S; Temp 99.1(O); Pulse Ox 98% on R/A; Weight 97.52 kg cc3 (R); Height 5 ft. 10 in. (177.80 cm) (R); 04:11 BP 120 / 89; Pulse 101; Resp 19 S; Pulse Ox 96% on R/A; cc3 03:10 Body Mass Index 30.85 (97.52 kg, 177.80 cm) cc3 MDM: 03:21 Patient medically screened. 04:34 Differential diagnosis: tendonitis, dvt,fb. Data reviewed: vital signs, nurses notes. gs Response to treatment: the patient's symptoms have markedly improved after treatment, and as a result, I will discharge patient. 04:34 Counseling: I had a detailed discussion with the patient and/or guardian regarding: the gs historical points, exam findings, and any diagnostic results supporting the discharge/admit diagnosis, the need for outpatient follow up. 03/14 03:22 Order name: Hand Right 3 View XRAY gs 03/14 04:07 Order name: UPPER EXTREMITY VENOUS UNILATE EDMS Administered Medications: 04:40 Drug: TORadol 30 mg Route: IM; Site: right gluteus; cc3 04:50 Follow up: Response: No adverse reaction cc3 Disposition: 03/14/18 04:37 Discharged to Home. Impression: Pain in right upper arm. - Condition is Stable. - Discharge Instructions: Musculoskeletal Pain, Pain Without a Known Cause. - Prescriptions for Naprosyn 500 mg Oral Tablet - take 1 tablet by ORAL route 2 times per day take with food; 20 tablet. Tylenol- Codeine #4 300-60 mg Oral Tablet - take 1 tablet by ORAL route every 6 hours As needed; 10 tablet. - Medication Reconciliation Form, Thank You Letter, Antibiotic Education, Prescription Opioid Use form. - Follow up: Private Physician; When: 1 - 2 days; Reason: Re-evaluation by your physician. Signatures: Dispatcher [employer] [facility] Cj Hinton MD MD Nay Canales cc3 Corrections: (The following items were deleted from the chart) 04:07 03:23 Extremity Venous Uni Ltd+[email or web address].RAD.BRZ ordered. [facility] EDMS 04:51 04:37 03/14/2018 04:37 Discharged to Home. Impression: Pain in right upper arm. cc3 Condition is Stable. Forms are Medication Reconciliation Form, Thank You Letter, Antibiotic Education, Prescription Opioid Use. Follow up: Private Physician; When: 1 - 2 days; Reason: Re-evaluation by your physician. la
--- NOTE | 2018-03-14 08:20 | RAD REPORT ---
EXAM DESCRIPTION: RAD - Hand Right 3 View - 03/14/2018 4:05 am CLINICAL HISTORY: PAIN Pain and swelling right hand COMPARISON: No comparisons FINDINGS: No bone or joint abnormality is detected.
--- NOTE | 2018-03-14 08:21 | RAD REPORT ---
EXAM DESCRIPTION: US - UPPER EXTREMITY VENOUS UNILATE - 03/14/2018 4:39 am CLINICAL HISTORY: PAIN Arm pain and swelling COMPARISON: No comparisons FINDINGS: Right upper extremity venous system was interrogated with Doppler technique. Normal flow, compressibility and augmentation was noted. There is no DVT present. IMPRESSION: No evidence of right upper extremity deep venous thrombosis.
== END 2018-03-14 04:51 | disposition home or self-care (01) ==
LOC: ER 03:03
DX: M79.621 Pain in right upper arm (principal)
CPT/HCPCS: 93971; 96372; 99284

== ENCOUNTER 2019-08-23 04:36 | Emergency (ER) | payer BC ==
--- OUTSIDE RECORDS SUMMARY | 2019-08-23 04:38 | XMS REPORT | Continuity of Care Document ---
:1970 Author Organization [facility] t Address [address] [place] [address] Care Team Providers Name Role Phone Unavailable Unavailable Unavailable Problems Condition Condition Condition Status Onset Resolution Last Treating Co mments Source Name Details Category Date Date Treatment Clinician Date Otalgia Otalgia Problem Active [facility] Acute Acute Problem Active [facility] maxillary Maxillary da sinusitis Sinusitis Medi kannan Group Allergic Allergic Problem Active [facility] rhinitis Rhinitis da due to Due to Medical pollen Pollen Group Disorder Disorder Problem Active [facility] of upper of Upper da respirator Respirator Me dical y system y System Group Headache Headache Problem Active [facility] Hypertroph Hypertroph Problem Active M [facility] y of nasal y of Nasal da turbinates Turbinates Me dical Group Allergies, Adverse Reactions, Alerts Allergy Allergy Status Severity Reaction(s) Onset Inactive Treating Comm ents Source Name Type Date Date Clinician PENICILL Allergy Active [facility] INS to da substanc Medical e Group Social History Smoking Status Start Date Stop Date Source Former Smoker [facility] Medications Ordered Filled Start Stop Current Ordering Indication Dosage Frequency Signature Comments Components Source Medication Medication Date Date Medication? Clinician (SIG) Name Name Kenalog 40 Kenalog 40 2018-02 No Kenalog 40 [facility] mg/mL mg/mL 1-04 mg/mL da suspension suspension 16:26: suspension Medical for for 45 for Group injectionTa injectionTa injectionT ke 2 mg by ke 2 mg by max 2 mg injection injection by route. route. injection route. Afluria Qd Afluria Qd No Afluria Qd [facility] ( ( da mos mos (36 mos Medical up)(PF)60 up)(PF)60 up)(PF)60 Group mcg (15 mcg mcg (15 mcg mcg (15 x4)/0.5 mL x4)/0.5 mL mcg IM syringe IM syringe x4)/0.5 mL IM syringe albuterol albuterol No albuterol [facility] sulfate 2.5 sulfate 2.5 sulfate da mg/3 mL mg/3 mL 2.5 mg/3 Medic al (0.083 %) (0.083 %) mL (0.083 Group solution solution %) for for solution nebulizatio nebulizatio for n n nebulizati on fluticasone fluticasone No fluticason [facility] propionate propionate e da 50 50 propionate Medical mcg/actuati mcg/actuati 50 G roup on nasal on nasal mcg/actuat spray,suspe spray,suspe ion nasal nsion nsion spray,susp ension Kenalog 40 Kenalog 40 No 2mg Kenalog 40 [facility] mg/mL mg/mL mg/mL da suspension suspension suspension Medical for for for Group injection injection injection Take 2 mg Take 2 mg Take 2 mg by by by injection injection injection route. route. route. naproxen naproxen No naproxen [facility] 500 mg 500 mg 500 mg da tablet tablet tablet Medical Group ProAir HFA ProAir HFA No ProAir HFA [facility] 90 90 90 da mcg/actuati mcg/actuati mcg/actuat Medical on aerosol on aerosol ion Alfa up inhaler inhaler aerosol inhaler Symbicort Symbicort No Symbicort [facility] 160 mcg-4.5 160 mcg-4.5 160 d a mcg/actuati mcg/actuati mcg-4.5 Medical on HFA on HFA mcg/actuat Group aerosol aerosol ion HFA inhaler inhaler aerosol inhaler triamcinolo triamcinolo No triamcinol [facility] ne ne one da acetonide acetonide acetonide Medical 0.1 % 0.1 % 0.1 % Group topical topical topical cream cream cream Vital Signs Vital Name Observation Time Observation Value Comments Source BP Diastolic 2018-12-12 00:00:00 99 mm[Hg] [facility] Height 2018-12-12 00:00:00 70 [facility]_i[facility] BMI (Body Mass 2018-12-12 00:00:00 37.3 kg/m2 [facility] scra[facility] meat Medical Index) Group BP Systolic 2018-12-12 00:00:00 159 mm[Hg] [facility] Body Weight 2018-12-12 00:00:00 259.9 [lb_av] [facility] BP Diastolic 2018-11-02 00:00:00 96 mm[Hg] [facility] Height 2018-11-02 00:00:00 70 [in_i] [facility] BMI (Body Mass 2018-11-02 00:00:00 36.2 [facility] BP Systolic 2018-11-02 00:00:00 146 mm[Hg] [facility] Body Weight 2018-11-02 00:00:00 252.4 [lb_av] [facility] Procedures Procedure Date / Time Performed Performing Clinician Sour e TYMPANOMETRY 2018-12-12 00:00:[address] [facility] [address], face, w/o contrast 2018-12-12 00:00:00 [facility] TYMPANOMETRY 2018-11-02 00:00:00 [facility] Plan of Care Planned Activity Planned Date Details Comments Source Instructions [facility] Encounters Start End Encounter Admission Attending Care Care Encounter Source Date/Time Date/Time Type Type Clinicians Facility Department ID 2018-06-21 Outpatient [facility] [id number] [facility] 15:56:54 2018-12-12 2018-12-12 [facility] [place] - [id number] [facility] 00:00:00 00:00:00 MD Tripp: [address] [id number] , Ph. 2018-11-02 2018-11-02 [facility] [place] - [id number] [facility] 00:00:00 00:00:00 MD Tripp: [address] [phone] , Ph. Results Test Description Test Time Test Comments Results Result Comments Source tympanogram 2018-12-12 14:10:32 Test Item Value Reference Range Interpretation Comme nts Right (test code = Right) Type A Normal Left (test code = Left) Type A Normal [id number] 09:52:42 Test Item Value Reference Range Interpretation Comments Right (test code = Right) Type A Normal Left (test code = Left) Type A Normal [facility]
[2019-08-23 04:52] LABS: Absolute Lymphocytes (CBC) 2.2 K/uL (0.7-4.9); Basophils % 1.2 % (0-1.3); Hematocrit 41.8 % (39.6-49.0); Lymphocytes % 23.8 % (15.3-44.8); MPV 9.7 fL (7.6-11.3); RBC Red Blood Cell Count 5.01 M/uL (4.33-5.43)
[2019-08-23 04:57] LABS: Protime INR 0.99
[2019-08-23 05:11] LABS: ALT/SGPT 33 U/L (12-78); AST/SGOT 18 U/L (15-37); Albumin 3.5 g/dL (3.4-5.0); Alkaline Phosphatase 76 U/L (45-117); BUN Blood Urea Nitrogen 16 mg/dL (7-18); Bicarbonate 26 mmol/L (21-32); Bilirubin Direct < 0.1 mg/dL (0-0.2); Bilirubin Total 0.2 mg/dL (0.2-1.0); Glucose Level 180 mg/dL (74-106); Magnesium 1.8 mg/dL (1.8-2.4); NT PRO-BNP 11 pg/mL (<125); Potassium 3.9 mmol/L (3.5-5.1); Protein, Total 7.2 g/dL (6.4-8.2); Sodium Level 139 mmol/L (136-145); Troponin (Emerg Dept Use Only) < 0.02 ng/mL (0.0-0.045)
[2019-08-23 06:09] LABS: Barbiturates NEGATIVE (NEGATIVE); Benzodiazepines NEGATIVE (NEGATIVE); Cocaine NEGATIVE (NEGATIVE); METHAMPHETAM NEGATIVE (NEGATIVE); Methadone NEGATIVE (NEGATIVE); Opiates NEGATIVE (NEGATIVE); Phencyclidine NEGATIVE (NEGATIVE); THC Cannibis NEGATIVE (NEGATIVE)
--- NOTE | 2019-08-23 07:44 | EKG ---
Test Date: 2019-08-23 Test Time: 04:38:27 Repairing Calibrator: JOY MEASUREMENT RESULTS: Intervals: Rate: 97 WI: 150 QRSD: 74 QT: 360 QTc: 457 [place]: P: 50 WI: 150 QRS: 59 T: 36 INTERPRETIVE STATEMENTS: Normal sinus rhythm Normal ECG Compared to ECG 02/12/2018 08:24:38 Sinus tachycardia no longer present Electronically Signed On 08-23-19 07:44:21 CDT by Remigio Daniels
--- NOTE | 2019-08-23 07:48 | RAD REPORT ---
EXAM DESCRIPTION: CT - Chest For Pe Angio - 08/23/2019 6:45 am CLINICAL HISTORY: Chest pain COMPARISON: None. TECHNIQUE: Dynamically enhanced axial 3 mm thick images of the chest were obtained during administra tion of <100> mL Isovue 370 IV contrast. Coronal and oblique reconstruction images were generated and reviewed. Exam utilizes a protocol for optimal evaluation of pulmonary arterial tree. Maximum intensity projections 3D imaging was utilized All CT scans are performed using dose optimization technique as appropriate and may include automated exposure control or mA/KV adjustment according to patient size. FINDINGS: The opacification of the pulmonary arteries is suboptimal. No gross central pulmonary embo lism seen. A thoracic aortic aneurysm is not noted. A pleural effusion is not seen. A pericardial effusion is not seen. A lung consolidation is not present. IMPRESSION: No evidence for a pulmonary embolism.
--- NOTE | 2019-08-23 08:31 | RAD REPORT ---
EXAM DESCRIPTION: Abby Single View08/23/2019 4:58 am CLINICAL HISTORY: Chest pain COMPARISON: 2019 FINDINGS: The lungs appear clear of acute infiltrate. The heart is normal size IMPRESSION: No acute abnormalities displayed
--- NOTE | 2019-08-23 08:44 | ER ---
Nurse's Notes [facility] Name: Addison Trujillo Age: 48 yrs Sex: Male : 1970 Arrival Date: 08/23/2019 Time: 04:36 Bed 7 Private MD: Diagnosis: Chest pain, unspecified Presentation: 08/22 04:37 Chief complaint: EMS states: chest pain started 0345, right side of the chest, rv described as dull pain. with 6/10 pain scale, non radiating. Coronavirus screen: Proceed with normal triage. Ebola Screen: No symptoms or risks identified at this time. Initial Sepsis Screen: Does the patient meet any 2 criteria? No. Patient's initial sepsis screen is negative. Does the patient have a suspected source of infection? No. Patient's initial sepsis screen is negative. Risk Assessment: Do you want to hurt yourself or someone else? Patient reports no desire to harm self or others. Onset of symptoms was August 23, 2019 at 03:45. 04:37 Method Of Arrival: EMS: [facility] rv 04:37 Acuity: FREDERIC 3 rv Triage Assessment: 04:40 General: Appears comfortable, Behavior is calm, cooperative. rv Historical: - Allergies: 04:40 PENICILLINS; rv - PMHx: 04:40 Diabetes - NIDDM; Asthma; rv - PSHx: 04:40 None; rv - Immunization history:: Adult Immunizations up to date. - Social history:: Smoking status: Patient/guardian denies using tobacco, the patient reports quitting approximately 2 years ago. Screenin:38 Abuse screen: Denies threats or abuse. Denies injuries from another. Nutritional mg2 screening: No deficits noted. Tuberculosis screening: No symptoms or risk factors identified. Fall Risk IV access (20 points). Assessment: 04:38 General: Appears in no apparent distress. comfortable, Behavior is calm, cooperative. mg2 Pain: Complains of pain in chest. Pain: Pain does not radiate. Quality of pain is described as dull, Pain began 1 hour ago. Neuro: Level of Consciousness is awake, alert, obeys commands, Oriented to person, place, time, situation. Cardiovascular: Capillary refill < 3 seconds Patient's skin is warm and dry. Respiratory: Airway is patent Respiratory effort is even, unlabored, Respiratory pattern is regular, symmetrical. GI: No signs and/or symptoms were reported involving the gastrointestinal system. : No signs and/or symptoms were reported regarding the genitourinary system. EENT: Derm: Skin is intact, is healthy with good turgor, Skin is pink, warm \\T\\ dry. normal. Musculoskeletal: Circulation, motion, and sensation intact. Capillary refill < 3 seconds. 07:45 Reassessment: Repeat cardiac enzymes drawn and sent to lab. . aa5 07:45 General: Appears comfortable, Behavior is calm, cooperative. Pain: Complains of pain in aa5 chest "only when taking a deep breath" Pain does not radiate. Pain currently is 0 out of 10 on a pain scale. Quality of pain is described as sharp, Is intermittent. Neuro: Level of Consciousness is awake, alert, obeys commands, Oriented to person, place, time, situation. Cardiovascular: Heart tones S1 S2 present Rhythm is sinus rhythm. Respiratory: Reports cough that is dry, Airway is patent Respiratory effort is even, unlabored, Respiratory pattern is regular, symmetrical, Breath sounds are clear bilaterally. GI: Abdomen is round Bowel sounds present X 4 quads. : No signs and/or symptoms were reported regarding the genitourinary system. EENT: Reports nasal congestion. Derm: Skin is dry, Skin is normal, Skin temperature is warm. Musculoskeletal: Range of motion: intact in all extremities. 09:00 Neuro: Level of Consciousness is awake, alert, obeys commands, Oriented to person, aa5 place, time, situation. Respiratory: Airway is patent Respiratory effort is even, unlabored, Respiratory pattern is regular, symmetrical. Derm: Skin is dry, Skin is normal, Skin temperature is warm. Vital Signs: 04:37 BP 156 / 101; Pulse 102; Resp 19; Temp 98.6; Pulse Ox 98% ; Weight 117.93 kg; Height 5 rv ft. 9 in. (175.26 cm); Pain 6/10; 05:37 BP 161 / 99; Pulse 98; Resp 15; Pulse Ox 98% on R/A; rv 07:44 BP 160 / 99; Pulse 92; Resp 16; Temp 98.4(O); Pulse Ox 97% on R/A; mh5 09:00 BP 131 / 62; Pulse 91; Resp 16 S; Pulse Ox 99% on R/A; aa5 04:37 Body Mass Index 38.39 (117.93 kg, 175.26 cm) rv ED Course: 04:36 Patient arrived in ED. mg2 04:37 Ned Roman, RN is Primary Nurse. rv 04:37 No provider procedures requiring assistance completed. Maintain EMS IV. Dressing mg2 intact. Good blood return noted. Site clean \\T\\ dry. Gauge \\T\\ site: 20 \\T\\ RAC. 04:38 Jackson Luu MD is Attending Physician. [facility] 04:40 Triage completed. rv 04:41 Arm band placed on Patient placed in the treatment room, on a stretcher, Patient rv notified of wait time. 04:58 XRAY Chest (1 view) In Process Unspecified. EDMS 06:42 Dakota Rice PA is PHCP. jm 06:45 CT Chest For PE Angio In Process Unspecified. EDMS 07:46 Patient has correct armband on for positive identification. Placed in gown. Bed in low mh5 position. Call light in reach. Side rails up X 1. Warm blanket given. secured entrance monitor on. Pulse ox on. NIBP on. 09:00 IV discontinued, intact, bleeding controlled, No redness/swelling at site. Pressure aa5 dressing applied. 16:00 Health Dept notified. PUI # [id number]/ Francia from lab notified. eb Administered Medications: No medications were administered Outcome: 08:44 Discharge ordered by . viry 09:00 Discharged to home ambulatory. aa5 09:00 Condition: stable 09:00 Discharge instructions given to patient, Instructed on discharge instructions, follow up and referral plans. Demonstrated understanding of instructions, follow-up care. 09:10 Patient left the ED. aa5 Addendum: 08/25/2019 09:36 Addendum: COVID-19 Result: Negative result given to RN to notify pt. Omar caldwell contact pt regarding negative COVID-19 swab results. Unable to leave voice mail due to the number provided was either not a working number, the voice mail has not been set up, or the voice mailbox is full.. 08/28/2019 13:01 Addendum: COVID-19 Result: Negative result given to RN to notify pt. Contacted by: Kaylyn Moore RN. Notified pt of negative COVID 19 swab results. Pt advised that even with a negative test result they should remain in isolation until symptom free for 3 days without medication. Pt also advised to return to the ED for worsening symptoms. Signatures: Dispatcher [employer] Jada Ramirez RN RN dm5 Dakota Rice PA PA jmm Calderon, Audri, RN RN aa5 Nikole Sarmiento Elizabeth eb Gardose, Michele, RN RN mg2 Vicente, Ronaldo, RN RN rv Holmes, Maurice, MD MD 7 Corrections: (The following items were deleted from the chart) 08/22 09:27 09:16 Patient left the ED. judith wilder
--- NOTE | 2019-08-23 08:44 | EDPHYS ---
Physician Documentation [facility] Name: Addison Trujillo Age: 48 yrs Sex: Male : 1970 Arrival Date: 08/23/2019 Time: 04:36 Bed 7 Private MD: ED Physician Jackson Luu HPI: 08/22 04:50 This 48 yrs old Black Male presents to ER via EMS with complaints of Chest Pain. mh7 04:50 The patient or guardian reports chest pain that is located primarily in the anterior mh7 chest wall, right. Onset: this morning. The pain does not radiate. Associated signs and symptoms:. 04:51 Associated signs and symptoms: Pertinent positives: cough, , Pertinent negatives: mh7 abdominal pain, diaphoresis, dizziness, headache, lower extremity pain, lower extremity swelling, lightheadedness, nausea, near syncope, palpitations, recent travel, shortness of breath, syncope, vomiting. The chest pain is described as dull. Duration: The patient or guardian reports multiple episodes, that are intermittent, that wax and wane, with no pattern. Modifying factors: The symptoms are alleviated by nothing. the symptoms are aggravated by nothing. Severity of pain: At its worst the pain was moderate this morning, in the emergency department the pain has resolved and did so just prior to arrival. Historical: - Allergies: 04:40 PENICILLINS; rv - PMHx: 04:40 Diabetes - NIDDM; Asthma; rv - PSHx: 04:40 None; rv - Immunization history:: Adult Immunizations up to date. - Social history:: Smoking status: Patient/guardian denies using tobacco, the patient reports quitting approximately 2 years ago. ROS: 04:51 Constitutional: Negative for fever, chills, and weight loss, Eyes: Negative for injury, mh7 pain, redness, and discharge, ENT: Negative for injury, pain, and discharge, Neck: Negative for injury, pain, and swelling, Abdomen/GI: Negative for abdominal pain, nausea, vomiting, diarrhea, and constipation, Back: Negative for injury and pain, : Negative for injury, bleeding, discharge, and swelling, MS/Extremity: Negative for injury and deformity, Skin: Negative for injury, rash, and discoloration, Neuro: Negative for headache, weakness, numbness, tingling, and seizure, Psych: Negative for depression, anxiety, suicide ideation, homicidal ideation, and hallucinations, Allergy/Immunology: Negative for hives, rash, and allergies, Endocrine: Negative for neck swelling, polydipsia, polyuria, polyphagia, and marked weight changes, Hematologic/Lymphatic: Negative for swollen nodes, abnormal bleeding, and unusual bruising. Exam: 04:51 Constitutional: This is a well developed, well nourished patient who is awake, alert, mh7 and in no acute distress. Head/Face: Normocephalic, atraumatic. Eyes: Pupils equal round and reactive to light, extra-ocular motions intact. Lids and lashes normal. Conjunctiva and sclera are non-icteric and not injected. Cornea within normal limits. Periorbital areas with no swelling, redness, or edema. Neck: Trachea midline, no thyromegaly or masses palpated, and no cervical lymphadenopathy. Supple, full range of motion without nuchal rigidity, or vertebral point tenderness. No Meningismus. Chest/axilla: Normal chest wall appearance and motion. Nontender with no deformity. No lesions are appreciated. Cardiovascular: Regular rate and rhythm with a normal S1 and S2. No gallops, murmurs, or rubs. Normal PMI, no JVD. No pulse deficits. Respiratory: Lungs have equal breath sounds bilaterally, clear to auscultation and percussion. No rales, rhonchi or wheezes noted. No increased work of breathing, no retractions or nasal flaring. Abdomen/GI: Soft, non-tender, with normal bowel sounds. No distension or tympany. No guarding or rebound. No evidence of tenderness throughout. Back: No spinal tenderness. No costovertebral tenderness. Full range of motion. Skin: Warm, dry with normal turgor. Normal color with no rashes, no lesions, and no evidence of cellulitis. MS/ Extremity: Pulses equal, no cyanosis. Neurovascular intact. Full, normal range of motion. Neuro: Awake and alert, GCS 15, oriented to person, place, time, and situation. Cranial nerves II-XII grossly intact. Motor strength 5/5 in all extremities. Sensory grossly intact. Cerebellar exam normal. Normal gait. Psych: Awake, alert, with orientation to person, place and time. Behavior, mood, and affect are within normal limits. 04:55 ECG was reviewed by the Attending Physician. 7 Vital Signs: 04:37 BP 156 / 101; Pulse 102; Resp 19; Temp 98.6; Pulse Ox 98% ; Weight 117.93 kg; Height 5 rv ft. 9 in. (175.26 cm); Pain 6/10; 05:37 BP 161 / 99; Pulse 98; Resp 15; Pulse Ox 98% on R/A; rv 07:44 BP 160 / 99; Pulse 92; Resp 16; Temp 98.4(O); Pulse Ox 97% on R/A; mh5 09:00 BP 131 / 62; Pulse 91; Resp 16 S; Pulse Ox 99% on R/A; aa5 04:37 Body Mass Index 38.39 (117.93 kg, 175.26 cm) rv MDM: 04:50 Patient medically screened. [facility] 08:40 Data reviewed: vital signs, nurses notes. Counseling: I had a detailed discussion with kathy the patient and/or guardian regarding: the historical points, exam findings, and any diagnostic results supporting the discharge/admit diagnosis, radiology results, the need for outpatient follow up, to return to the emergency department if symptoms worsen or persist or if there are any questions or concerns that arise at home. ED course: CTA is negative. Repeat enzymes negative. Patient is advised to follow up with pcp and otherwise given strict return precautions.; Patient understood and agrees with the plan of care. . 08:41 ED course: HEART SCORE = 2. [facility] [place] 08/22 04:37 Order name: Basic Metabolic Panel; Complete Time: 05:26 [facility] [place] 08/22 04:37 Order name: CBC with Diff; Complete Time: 05: [facility] [place] 08/22 04:37 Order name: LFT's; Complete Time: 05: mg2 08/22 04:37 Order name: Magnesium; Complete Time: 05:26 mg2 08/22 04:37 Order name: NT PRO-BNP; Complete Time: 05:26 [facility] [place] 08/22 04:37 Order name: PT-INR; Complete Time: 06:07 [facility] [place] 08/22 04:37 Order name: Troponin (emerg Dept Use Only); Complete Time: 05:26 [facility] [place] 08/22 04:37 Order name: XRAY Chest (1 view); Complete Time: 08:32 [facility] [place] 08/22 05:02 Order name: UDS; Complete Time: 06:42 [facility] 08/22 05:40 Order name: D-Dimer; Complete Time: 06:07 EDMS 08/22 05:54 Order name: Urine Dipstick--Ancillary (enter results) ar5 08/22 06:02 Order name: Troponin (emerg Dept Use Only); Complete Time: 08:40 rv 08/22 06:15 Order name: COVID-19 rv 08/22 04:37 Order name: EKG; Complete Time: 04:38 mg2 08/22 04:37 Order name: Cardiac monitoring; Complete Time: 04:37 mg2 08/22 04:37 Order name: EKG - Nurse/Tech; Complete Time: 04:37 mg2 08/22 04:37 Order name: IV Saline Lock; Complete Time: 04:37 mg2 08/22 04:37 Order name: Labs collected and sent; Complete Time: 04:37 mg2 08/22 04:37 Order name: O2 Per Protocol; Complete Time: 04:37 mg2 08/22 04:37 Order name: O2 Sat Monitoring; Complete Time: 04:37 [facility] [place] 08/22 05:02 Order name: Urine Dipstick-Ancillary (obtain specimen); Complete Time: 05:47 7 08/22 06:15 Order name: CT Chest For PE Angio; Complete Time: 07:54 rv EC:55 Rate is 97 beats/min. Rhythm is regular, Normal Sinus Rhythm. QRS [place] is Normal. [place] mh7 interval is normal. QRS interval is normal. QT interval is normal. No Q waves. T waves are Normal. No ST changes noted. Clinical impression: Normal ECG. Administered Medications: No medications were administered Disposition: 08/23/19 08:44 Discharged to Home. Impression: Chest pain, unspecified. - Condition is Stable. - Discharge Instructions: Nonspecific Chest Pain, COVID-19. - Medication Reconciliation Form, Thank You Letter, Antibiotic Education, Prescription Opioid Use form. - Follow up: Private Physician; When: 2 - 3 days; Reason: Recheck today's complaints, Continuance of care, Re-evaluation by your physician. Addendum: 08/27/2019 06:13 Co-signature as Attending Physician, Jackson Luu MD. [facility] Signatures: Dispatcher [employer] EDDakota Coombs PA PA jmm Botello, Elizabeth eb Gardose, Michele RN RN mg2 Ned Roman RN RN rv Jackson Luu MD MD mh7 Corrections: (The following items were deleted from the chart) 08/22 05:39 05:37 D-DIMER+[id number].BRZ ordered. EDMS EDMS 09:16 08:44 08/23/2019 08:44 Discharged to Home. Impression: Chest pain, unspecified. eb Condition is Stable. Forms are Medication Reconciliation Form, Thank You Letter, Antibiotic Education, Prescription Opioid Use. Follow up: Private Physician; When: 2 - 3 days; Reason: Recheck today's complaints, Continuance of care, Re-evaluation by your physician. viry
[2019-08-23 09:37] VITALS: BP 160/99; TEMP 98.4; O2SAT 97
[2019-08-23 09:39] LABS: Urine Blood NEGATIVE (NEG); Urine Glucose NEGATIVE (NEG); Urine Protein NEGATIVE (NEG); Urine Specific Gravity 1.025 (1.005-1.030); Urine pH 5.5 (5.0-7.0)
== END 2019-08-23 09:16 | disposition home or self-care (01) ==
LOC: ER 04:36
DX: R07.9 Chest pain, unspecified (principal); Z20.828 Contact with and (suspected) exposure to other viral communicable diseases; Z88.0 Allergy status to penicillin
CPT/HCPCS: 93005; 85025; 80048; 36415; 83735; 85610; 85379; 80076; 80307 ×8; 81003; 84484 ×2; 83880; 71275; 71045; 99284; U0001; Q9967